=== PATIENT | male | born 1980 | race Caucasian/White ===

== ENCOUNTER 2017-02-23 11:10 | Day surgery (SDC) | payer MEDICARE ==
[~2017-02-23 11:10] MED LIST: NORVASC10 MG PO; STERAPRED 5MG 125 MG PO
[2017-02-23] MEDS ORDERED: HYDROCODON-ACE1 EAC9 PO (11:33)
[2017-02-23 11:41] VITALS: BP 128/88; BMI 24.4
[2017-02-23 12:22] LABS: HEMATOCRIT 42.7 % (42.0-54.0); HEMOGLOBIN 14.9 g/dL (13.5-17.5); MCH 30.4 pg (26.0-34.0); MCHC 34.9 g/dL (31.0-37.0); MCV 87.1 fL (80.0-100.0); MEAN PLATELET VOLUME 10.9 fL (7.4-10.4); RBC 4.9 10x6/uL (4.20-6.10); RDW 13.6 % (11.5-14.5); WBC 7.2 10x3/uL (4.8-10.8)
--- NOTE | 2017-02-23 15:25 | NUR ---
1445--IV DC'D, PT UP TO DRESS AT THIS TIME. RAMEZ GARCIA 0655--DISCHARGE INSTRUCTIONS GIVEN, PT VERBALIZES UNDERSTANDING. PT OFF UNIT VIA WC. RAMEZ GARCIA
--- NOTE | 2017-03-30 13:09 | OP ---
PATIENT NAME: NAIN MOLINA JR MEDICAL RECORD: [id number] :82 LOCATION:[facility] ADMISSION DATE: SURGEON: CARISSA DICKINSON DPM DATE OF OPERATION: 02/23/2017 PREOPERATIVE DIAGNOSIS: Fracture base of the left first metatarsal. POSTOPERATIVE DIAGNOSIS: Fracture base of the left first metatarsal. PROCEDURE: Open reduction internal fixation of the left first metatarsal. ANESTHESIA: Local IV sedation utilizing lidocaine and Marcaine plain, approximately 15 cc total around the base of the first ray. HEMOSTASIS: Left thigh tourniquet at 350 mmHg. PREOPERATIVE DETAILS: The patient was taken to the OR, placed on the operating table in supine position. This was followed by induction of general anesthesia and infiltration of local anesthetic. The left extremity was then prepped and draped in the usual aseptic technique followed by exsanguination and inflation of tourniquet. A 15 blade was used to create a small incision overlying the area to begin reduction. C-arm was used to verify the incision. Once incision was made down to bone, a guidewire was placed from medial to lateral, capturing the lateral fragment. Once verification of capture was provided with the C-arm, a headless compression screw was placed over the wire, noting excellent compression of the fracture site. A second K-wire was drilled just proximal to that capturing the proximal aspect of the fracture fragment. Fluoroscopy was used to verify that. A second screw was placed over the top of that guidewire noting excellent reduction of the fracture fragment. Once the C-arm was used to verify good anatomical alignment as well as reduction, the guidewire was removed and the wound was flushed and the skin was closed with 4-0 Vicryl and 4-0 nylon. Adaptic, 4 x 4, and Conform were used to dress the wound followed by Coban. Tourniquet was deflated. POSTOPERATIVE DETAILS: The patient tolerated the procedure well and left the OR with vital signs stable and vascular status at preoperative levels. The patient was transported to recovery per anesthesia in stable condition. TRANSINT:[id number] Voice Confirmation ID: [id number] DOCUMENT ID: [id number] CARISSA DICKINSON DPM at 1309 CC: [id number] DICTATION DATE: 03/23/17 1212 STUDIO TECHNICIAN VIDEO OPERATOR: 03/23/17 1230 [facility] 02/23/17 [place] [id number] [place] [address]
== END 2017-02-23 14:55 | disposition home or self-care (01) ==
LOC: D.OPS 11:10 → D.PAN 12:45 → D.OPS 12:45 → D.PAN 14:15 → D.OPS 14:15
PROVIDERS: Anesthesiology
DX: S92.312A Displaced fracture of first metatarsal bone, left foot, initial encounter for closed fracture (principal); X58.XXXA Exposure to other specified factors, initial encounter; J45.909 Unspecified asthma, uncomplicated; I10 Essential (primary) hypertension; Z87.891 Personal history of nicotine dependence; Z01.812 Encounter for preprocedural laboratory examination

== ENCOUNTER 2017-03-24 09:52 | Emergency (ER) | payer MEDICARE ==
[~2017-03-24 09:52] MED LIST changes: +HYDROCODON-ACE1 EAC9 PO
--- NOTE | 2017-04-04 13:30 | EC ---
PATIENT:NAIN MOLINA JR DATE OF SERVICE: 03/24/17 SEX: M MEDICAL RECORD: [id number] DATE OF : [birth year] LOCATION:. AGE OF PATIENT: 36 ADMISSION DATE: 03/24/17 REFERRING PHYSICIAN: INTERPRETING PHYSICIAN: MARY HOWARD MD ECHOCARDIOGRAM REPORT ECHO CHARGES CLINICAL DIAGNOSIS: ECHOCARDIOGRAPHIC MEASUREMENTS (adult normal given) AC root (d.<3.7cm) cm LV Septum d (<1.2 cm> cm Valve Excursion cm LV Septum (systole) cm Left Atria (s.<4.0cm> cm LVPW d(<1.2cm) cm RV (d.<2.3cm) cm LVPW (sytole) cm LV diastole(<5.6CM) cm MV E-F(>70mm/sec) cm LV systole cm LVOT Diameter cm MV exc.(>10mm) cm Est.ejection fraction (50-75%) % Pericardial Effusion DOPPLER: LVIT cm/sec A cm/sec E cm/sec LA cm/sec RVSP mmHg LVOT cm/sec AOP1/2T m/s Asc. Ao cm/sec RVOT cm/sec RA cm/sec PA cm/sec AV Gradient Peak mmHg AV Mean mmHg AV Area cm MV Gradient Peak mmHg MV Mean mmHg MV Area cm COMMENTS: Solar Sales Associate: Dice Table Person: EMMA DATE OF SERVICE: 03/29/2017 Adequate 2D echo, color flow imaging, spectral Doppler, and M-Mode. LVH is present. LV internal dimension is normal. Wall motion is normal, EF is greater than or equal to 55%. Aortic valve is tricuspid. No evidence of stenosis by Doppler interrogation. The left atrium is normal at 3.5 cm. The mitral valve shows no prolapse. Trace MR. Right-sided chamber is normal. Trace TR. No obvious vegetation in all 4 cardiac valves. TRANSINT:[id number] Voice Confirmation ID: [id number] DOCUMENT ID: [id number] ECHOCARDIOGRAM REPORT [id number] TRACYNAIN MARY CHAWLA JR, MD at 1330 CC: [id number] DICTATION DATE: 03/29/17 1527 FLOORING MACHINE OPERATOR: 03/29/17 1646 [facility] 03/24/17 [facility] [address] [place] [address]
== END 2017-03-24 11:23 | disposition home or self-care (01) ==
LOC: D.ER 09:52
DX: R42 Dizziness and giddiness (principal); I10 Essential (primary) hypertension; F17.200 Nicotine dependence, unspecified, uncomplicated